=== PATIENT | female | born 2000 | race Hispanic/Latino ===

== ENCOUNTER 2021-04-18 10:09 | Emergency (ER) | payer OTHER ==
[~2021-04-18] VITALS: Ht 157.5 cm; Wt 78.0 kg
[2021-04-18] MEDS ORDERED: ACETAMINOPHEN 500 MG TABLET ONE ×2 (10:45→10:51)
[2021-04-18] MEDS ORDERED: IBUPROFEN 600 MG TABLET PO SCH (11:00)
[2021-04-18] MEDS ORDERED: PHEN177S35 MM (14:29)
[2021-04-18 14:58] VITALS: BP 137/81
== END 2021-04-18 15:03 | disposition home or self-care (01) ==
LOC: EDH 10:09
DX: J06.9 Acute upper respiratory infection, unspecified (principal); Z33.1 Pregnant state, incidental; Z79.1 Long term (current) use of non-steroidal anti-inflammatories (NSAID); Z88.0 Allergy status to penicillin
CPT/HCPCS: 87804; 87880

== ENCOUNTER 2021-04-20 19:07 | Emergency (ER) | payer MEDICAID, OTHER ==
[~2021-04-20] VITALS: Ht 157.5 cm; Wt 78.0 kg
[~2021-04-20 19:07] MED LIST: PHEN177S35 MM
[2021-04-20] MEDS: ACETAMINOPHEN 500 MG TABLET ONE (19:19)
[2021-04-20] MEDS: ONDANSETRON ODT 4MG TAB ONE (19:19)
[2021-04-20 23:03] LABS: APPEARANCE,URINE Turbid (CLEAR); BILIRUBIN,URINE Negative (NEGATIVE); COLOR,URINE Dark Yellow (YELLOW); GLUCOSE, URINE (UA) Negative (NEGATIVE); KETONES,URINE 40 mg/dL (NEGATIVE); LEUKOCYTE ESTERASE ,URINE Trace (NEGATIVE); NITRATE,URINE Negative (NEGATIVE); OCCULT BLOOD,URINE Small (NEGATIVE); PROTEIN,URINE POS 1+ mg/dL (NEGATIVE)
[2021-04-20 23:06] LABS: HCG,QUAL RESULT POSITIVE (NEGATIVE)
[2021-04-20 23:13] LABS: BACTERIA,URINE Many /HPF (None Seen); RBC,URINE 0-1 /HPF (0-1); WBC,URINE 0-1 /HPF (0-1)
[2021-04-20] MEDS: 0.9%NACL 1000ML 1,000 ML IV ONE (23:46)
[2021-04-20] MEDS: METOCLOPRAMIDE 10 MG/2 ML VIAL IVP ONE (23:47)
[2021-04-20] MEDS: LIDOCAINE HCL 2% VISCOUS 15 ML UDCUP PO ONE (23:47)
[2021-04-20] MEDS: MAG/ALUM/SIMETH 30 ML UDCUP PO ONE (23:47)
[2021-04-20] MEDS: LIDOCAINE HCL 2% VISCOUS 15 ML UDCUP ONE (23:48)
[2021-04-20] MEDS: MAG/ALUM/SIMETH 30 ML UDCUP ONE (23:48)
[2021-04-20] MEDS: METOCLOPRAMIDE 10 MG/2 ML VIAL ONE (23:48)
[2021-04-20 23:50] LABS: BASOPHILS % (AUTO) 0.3 % (0.0-5.0); HEMATOCRIT 39.1 % (36-48); LYMPHOCYTES % (AUTO) 17.5 % (21.0-51.0); MEAN CORPUSCULAR HEMOGLOBIN 29.1 pg (27.0-33.0); MEAN CORPUSCULAR HGB CONC 33.5 g/dL (32.0-36.0); MEAN CORPUSCULAR VOLUME 86.9 fL (80-100); MONOCYTES % (AUTO) 9.9 % (3.0-13.0); NEUTROPHILS % (AUTO) 71.9 % (40.0-77.0); PLATELET COUNT (AUTO) 224 K/uL (130-400); WHITE BLOOD COUNT (AUTO) 11.4 K/uL (4.8-10.8)
[2021-04-21] LABS: CREATININE 0.9 mg/dL (0.5-1.5); POTASSIUM 3.9 mmol/L (3.5-5.1)
[2021-04-21] MEDS ORDERED: CEFTRIAXONE 1G VIAL IVP ONE (00:30)
[2021-04-21] MEDS: CEFTRIAXONE 1G VIAL ONE (00:59)
[2021-04-21] MEDS: 0.9%NACL 1000ML 1,000 ML IV ONE ×2 (00:59→01:30)
[2021-04-21] MEDS: CLINDAMYCIN IVPB 600MG/50ML 50 ML IV ONE ×2 (01:00→01:29)
[2021-04-21 01:23] VITALS: BP 126/63
[2021-04-21] MEDS ORDERED: METO-296 PO (01:28)
[2021-04-21] MEDS ORDERED: CEPH500B PO (01:28)
[2021-04-21] MEDS ORDERED: BENZ1LOZ MM (01:28)
[2021-04-21] MEDS ORDERED: ONDA4TAB10 PO (01:28)
== END 2021-04-21 02:08 | disposition home or self-care (01) ==
LOC: EDH 19:07
DX: N39.0 Urinary tract infection, site not specified (principal); E86.9 Volume depletion, unspecified; J02.9 Acute pharyngitis, unspecified; Z20.822 Contact with and (suspected) exposure to COVID-19; Z79.899 Other long term (current) drug therapy; Z88.0 Allergy status to penicillin
CPT/HCPCS: 36415; 80048; 81001; 81025; 85025; 87077; 87088; 87186; 87635; 87804 ×2; 87880; 96361; 96365; 96375 ×2; 99284; C9803; J0696; J2765; J3490; J7030